=== PATIENT | male | born 2000 | race Caucasian/White ===

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

== ENCOUNTER 2023-01-05 12:06 | Emergency (ER) | payer OTHER ==
[2023-01-05 12:26] VITALS: BP 136/70; PULSE 79; RESP 20; TEMP 98.2; BMI 21.5
[2023-01-05] MEDS ORDERED: methylPREDNISolone NA SUCC 125 MG/2 ML VIAL IVPB ONE (13:02)
[2023-01-05] MEDS ORDERED: SODIUM CHLORIDE 0.9% 1000 ML INFUS.BAG IV ONE (13:02)
[2023-01-05] MEDS ORDERED: FAMOTIDINE 20 MG/50 ML IVPB 20 MG/50 ML MG IVPB ONE ×2 (13:02→13:39)
[2023-01-05] MEDS ORDERED: methylPREDNISolone NA SUCC 125 MG/2 ML VIAL ONE (13:39)
[2023-01-05 13:49] LABS: INR 1.04 (0.83-1.09)
[2023-01-05 13:51] LABS: ACTIVATED PTT 31.4 SECONDS (25.2-36.5)
[2023-01-05 14:06] LABS: ALBUMIN 5.2 g/dl (3.4-5.0); BILIRUBIN,TOTAL 0.9 mg/dl (0.2-1); CALCIUM 9.6 mg/dl (8.5-10); CREATININE 0.9 mg/dl (0.55-1.3); TOT PROT 7.8 g/dl (6.4-8.2)
[2023-01-05 16:56] LABS: HEMATOCRIT 43.4 % (35.4-49); MCH 33.2 pg (25.7-33.7); MCHC 34.6 g/dl (32.0-35.9); MEAN CELL VOLUME 95.9 fl (80-96); MEAN PLT VOLUME 9.3 fl (7.5-11.1); PLATELET COUNT 269 10^3/uL (134-434); RBC 4.53 M/mm3 (4.00-5.60); RDW 13.6 % (11.9-15.9)
[2023-01-05 18:08] LABS: ANISOCYTOSIS 1+; MACROCYTOSIS 0
== END 2023-01-05 17:21 | disposition home or self-care (01) ==
LOC: FER 12:06
PROC: 3E033GC Introduction of Other Therapeutic Substance into Peripheral Vein, Percutaneous Approach (ICD-10-PCS; principal; 2023-01-05)
PROC: 3E033GC Introduction of Other Therapeutic Substance into Peripheral Vein, Percutaneous Approach (ICD-10-PCS; 2023-01-05)
PROC: 3E033GC Introduction of Other Therapeutic Substance into Peripheral Vein, Percutaneous Approach (ICD-10-PCS; 2023-01-05)
DX: R04.0 Epistaxis (principal); L29.9 Pruritus, unspecified; T78.40XA Allergy, unspecified, initial encounter; Z20.822 Contact with and (suspected) exposure to COVID-19
CPT/HCPCS: 0241U-QW; 36415; 71046-TC-FY; 71275-TC; 80053; 85027; 85610; 85730; 86780; 99285-25; Q9967